=== PATIENT | female | born 1945 | race Two or more races ===

== ENCOUNTER 2018-02-01 13:47 | Emergency (ER) | payer MEDICARE, MEDICAID ==
[~2018-02-01] VITALS: Ht 152.4 cm; Wt 56.7 kg
[2018-02-01 15:59] VITALS: BP 138/75
== END 2018-02-01 16:46 | disposition home or self-care (01) ==
LOC: ER 13:47
DX: G44.209 Tension-type headache, unspecified, not intractable (principal); I10 Essential (primary) hypertension; M19.90 Unspecified osteoarthritis, unspecified site
CPT/HCPCS: 70450